=== PATIENT | female | born 1975 | race African-American/Black ===

== ENCOUNTER 2018-04-30 22:13 | Emergency (ER) | payer OTHER, MEDICARE ==
[2018-05-01] MEDS: KETOROLAC 30 MG INJ IV (01:06)
[2018-05-01 01:19] LABS: ADD UMIC NO; UR ASCORBIC ACID NEGATIVE (NEGATIVE); UR BILIRUBIN (Dip) NEGATIVE (NEGATIVE); UR BLOOD (Dip) NEGATIVE (NEGATIVE); UR CLARITY CLEAR (CLEAR); UR COLOR YELLOW (YELLOW); UR GLUCOSE (Dip) NEGATIVE (NEGATIVE); UR KETONES (Dip) NEGATIVE (NEGATIVE); UR LEUKOCYTE ESTERASE (Dip) NEGATIVE Leu/ul (NEGATIVE); UR NITRITE (Dip) NEGATIVE (NEGATIVE); UR SPECIFIC GRAVITY (Dip) 1.026 (1.003-1.030); UR TOTAL PROTEIN (Dip) NEGATIVE (NEGATIVE); UR UROBILINOGEN (Dip) 1+ mg/dL (NEGATIVE)
[2018-05-01] MEDS: KETOROLAC 30 MG INJ IM (05:09)
== END 2018-05-01 05:34 | disposition home or self-care (01) ==
LOC: FTE 22:13
DX: D25.9 Leiomyoma of uterus, unspecified (principal); R10.2 Pelvic and perineal pain
CPT/HCPCS: 76830; 76856; 81003; 81025; 96372; 96374; 99285-25